=== PATIENT | male | born 1980 | race Caucasian/White ===

== ENCOUNTER 2020-06-06 23:03 | Emergency (ER) | payer BC, SELFPAY ==
--- NOTE | ~2020-06-06 | XR_ITS ---
EXAMINATION: XR chest 2V 06/06/2020 23:42 INDICATION: Midline chest pain PROCEDURE: 2 view chest COMPARISON: No prior studies for comparison. FINDINGS: The lungs are clear. The cardiomediastinal silhouette is within normal limits. There are no pleural effusions. There is no pneumothorax suspected. IMPRESSION: 1: NO ACUTE CARDIOPULMONARY DISEASE. Reviewed, dictated and finalized at location A.
[2020-06-06 23:05] VITALS: BP 153/101; PULSE 75; RESP 20; TEMP 36.8; O2SAT 98
--- NOTE | 2020-06-06 23:06 | ECG_ITS ---
Measurements Intervals [place] Rate: 87 P: 45 DC: 147 QRS: 67 QRSD: 88 T: 36 QT: 358 QTc: 432 Interpretive Statements SINUS RHYTHM BASELINE ARTIFACT- I, II, AVR NORMAL ECG Electronically Signed On 06-07-2020 7:00:12 CDT by Salomon Lynch D.O.
[2020-06-06 23:11] VITALS: PULSE 68; RESP 16; O2SAT 100
[2020-06-06 23:16] LABS: Basophils Absolute Auto 0.1 K/mm3 (0.0-0.1); Basophils Percent Auto 0.5 % (0.2-1.2); Eosinophils Absolute Auto 0.4 K/mm3 (0-0.3); Eosinophils Percent Auto 4.3 % (0-4.4); Hematocrit 48.5 % (42.0-52.0); Hemoglobin 16.6 g/dL (14.0-18.0); Immature Granulocyte Absolute 0.03 K/mm3 (0.00-0.031); Immature Granulocyte Percent A 0.3 % (0-0.5); Lymphocytes Absolute Auto 2.61 K/mm3 (0.9-3.2); Lymphocytes Percent Auto 27.9 % (18.3-44.2); Mean Corpuscular HGB Conc 34.2 g/dl (32-36); Mean Corpuscular Hemoglobin 30.8 pg (26-34); Mean Platelet Volume 10.7 fl (7.4-10.4); Monocytes Absolute Auto 0.9 K/mm3 (0.1-0.6); Monocytes Percent Auto 9.6 % (2.6-8.5); Neutrophils Absolute Auto 5.4 K/mm3 (1.3-6.7); Neutrophils Percent Auto 57.4 % (45.5-73.1); Platelet Count Result 198 k/mm3 (150-375); Red Blood Count 5.39 M/mm3 (4.6-6.20); Red Cell Distribution Width 12.7 % (11.5-14.5); White Blood Count 9.4 K/mm3 (4.5-10.0)
[2020-06-06 23:17] VITALS: O2SAT 98
[2020-06-06] MEDS: ASPIRIN 81 MG CHEWABLE TABLET 324 MG PO (23:19)
[2020-06-06 23:29] LABS: Blood Urea Nitrogen 21 mg/dL (9-20); Carbon Dioxide 29 mmol/L (22-30); Chloride 101 mmol/L (98-107); Estimated CRCL calculation 79 ml/min; Estimated Glomerular Filt Rate > 60; Glucose 86 mg/dL (75-110); Sodium 138 mmol/L (137-145)
[2020-06-06 23:33] LABS: INR 0.9
[2020-06-06 23:34] LABS: Partial Thromboplastin Time 27.2 SECONDS (22.3-36.8)
[2020-06-06 23:41] LABS: Troponin I < 0.012 ng/mL (0.000-0.034)
[2020-06-07 00:12] VITALS: BP 120/76; PULSE 71; RESP 19; O2SAT 96
--- NOTE | 2020-06-07 01:03 | ED.CHESTPAIN ---
HPI - Chest Pain General Chief Complaint: Chest Pain Stated Complaint: cp Time Seen by Provider: 06/07/20 00:41 History of Present Illness HPI narrative: Patient is a 39-year-old male who presents the ER with chest pain that happened earlier this evening. Sharp and lasting 30 to 40 minutes. Intermittent in the center progress chest without radiation. No nausea/vomiting/diaphoresis/dyspnea. Reports this happens a couple times a year he is never had it checked out but encouraged him to come in tonight. No history of coronary disease. No family history of coronary disease. No aggravating or alleviating factors that he is noted. No infectious symptoms. Related Data Allergies Allergy/AdvReac Type Severity Reaction Status Date / Time No Known Allergies Allergy Unverified 07/20/17 19:00 Review of Systems Review of Systems: All systems reviewed & are unremarkable except as noted in HPI and below Constitutional: Constitutional: Denies chills, Denies fever(s) and Denies weakness ENT: Denies nasal congestion and Denies sore throat Cardiovascular: Cardiovascular: Reports chest pain, Denies rapid heart rate and Denies radiating jaw, neck or arm pain Respiratory: Respiratory: Denies cough and Denies dyspnea Gastrointestinal: Gastrointestinal: Denies abdominal pain, Denies diarrhea, Denies nausea and Denies vomiting PMFSH Past Medical History Medical History (Updated 06/07/20 @ 01:07 by Stefan Moran MD) Healthy adult male Surgical History Surgical History (Updated 06/07/20 @ 01:05 by Stefan Moran MD) No pertinent past surgical history Social History Social History (Updated 06/07/20 @ 01:05 by Stefan Moran MD) Smoking status: Never smoker Exam Narrative: Exam Narrative: GENERAL: Well-appearing, well-nourished, and in no acute distress. HEAD: Normocephalic, atraumatic. CHEST: Clear to auscultation. No respiratory distress. No reproducible chest wall tenderness HEART: Regular rate and rhythm. No murmur heard. Normal peripheral pulses. ABDOMEN: Soft, nontender, nondistended. EXTREMITIES: Normal range of motion. No edema. SKIN: Warm, dry, no rash. NEURO: Alert and oriented x3. PSYCH: Normal mood and affect. Course Course Emergency Course: Unremarkable evaluation. Normal EKG without family history or risk factors for coronary disease. History sounds more musculoskeletal. Recommend NSAID therapy. Follow-up with PCP. Vital Signs Vital signs: Vital Signs Temperature 98.3 F 06/06/20 23:05 Pulse Rate 75 06/06/20 23:05 Respiratory Rate 20 06/06/20 23:05 Blood Pressure 153/101 H 06/06/20 23:05 Pulse Oximetry 98 06/06/20 23:05 Temperature 98.3 F 06/06/20 23:05 Pulse Rate 71 06/07/20 00:12 Respiratory Rate 19 06/07/20 00:12 Blood Pressure 120/76 06/07/20 00:12 Pulse Oximetry 96 06/07/20 00:12 MDM - Chest Pain Lab Data Result diagrams: 06/06/20 23:11 06/06/20 23:11 Labs: Lab Results 06/06/20 06/06/20 06/06/20 Range/Units 23:11 23:11 23:11 WBC 9.4 (4.5-10.0) K/mm3 RBC 5.39 (4.6-6.20) M/mm3 Hgb 16.6 (14.0-18.0) g/dL Hct 48.5 (42.0-52.0) % MCV 90.0 (80-100) fl MCH 30.8 (26-34) pg MCHC 34.2 (32-36) g/dl RDW 12.7 (11.5-14.5) % Plt Count 198 (150-375) k/mm3 MPV 10.7 H (7.4-10.4) fl Immature Gran % (Auto) 0.3 (0-0.5) % Neut % (Auto) 57.4 (45.5-73.1) % Lymph % (Auto) 27.9 (18.3-44.2) % [place] % (Auto) 9.6 H (2.6-8.5) % Eos % (Auto) 4.3 (0-4.4) % Baso % (Auto) 0.5 (0.2-1.2) % Lymph # (Auto) 2.61 (0.9-3.2) K/mm3 [place] # (Auto) 0.9 H (0.1-0.6) K/mm3 Eos # (Auto) 0.4 H (0-0.3) K/mm3 Baso # (Auto) 0.1 (0.0-0.1) K/mm3 Abs Immat Gran (auto) 0.03 (0.00-0.031) K/mm3 Absolute Neuts (auto) 5.4 (1.3-6.7) K/mm3 Absolute Nucleated RBC 0.0 (0.0-0.012) K/mm3 Nucleated RBC % 0.0 (0.0-0.2) % PT 12.0 (11.1-14.7)
== END 2020-06-07 01:17 | disposition home or self-care (01) ==
PROVIDERS: Emergency Provider Emergency Medicine
DX: R07.89 Other chest pain (principal)
CPT/HCPCS: 36415; 71046; 80048; 84484; 85025; 85610; 85730; 93005; 99284; A9270

== ENCOUNTER 2021-10-10 16:44 | Emergency (ER) | payer OTHER, BC, SELFPAY ==
--- NOTE | ~2021-10-10 | XR_ITS ---
XR elbow LT min 3V 10/10/2021 17:03 Indication: Left elbow pain after fall Procedure: 4 views left knee Comparison: No prior studies for comparison. Findings: No fracture, subluxation or dislocation. There is displacement of the ventral fat pad, cons istent with joint effusion. Impression: 1: Large joint effusion. No identifiable fracture. Recommend conservative therapy with follow-up x-ra ys in 10-14 days as clinically indicated. Reviewed, dictated and finalized at location A. [employer] SAFETY INSPECTOR Impression: 1: Large joint effusion. No identifiable fracture. Recommend conservative thera py with follow-up x-rays in 10-14 days as clinically indicated.
[2021-10-10 16:44] VITALS: BP 141/97; PULSE 87; RESP 18; O2SAT 98
--- NOTE | 2021-10-10 17:01 | PC.NURSE ---
Pt off floor to radiology.
--- NOTE | 2021-10-10 17:29 | ED.UPPEXIN ---
HPI - Extremity Injury (Upper) General Chief Complaint: Extremity Injury, Upper Stated Complaint: left arm pain Time Seen by Provider: 10/10/21 16:50 Source: patient Mode of arrival: ambulatory Limitations: no limitations History of Present Illness HPI narrative: 41-year-old with no major medical problems here with complaints of left elbow pain since the last couple hours. Patient states that he fell on outstretched hand while playing basketball with the kids at school. He denies any other injuries. complaint: injury to: left Onset (ago): hour(s) (2) Related Data Allergies Allergy/AdvReac Type Severity Reaction Status Date / Time No Known Allergies Allergy Verified 10/10/21 17:06 Review of Systems Review of Systems: All systems reviewed & are unremarkable except as noted in HPI and below Constitutional: Constitutional: Reports no additional constitutional complaints Eyes: Eyes: Reports no additional eye complaints ENT: Reports system reviewed and no additional complaints, except as documented Cardiovascular: Cardiovascular: Reports no additional cardiovascular complaints Respiratory: Respiratory: Reports no additional respiratory complaints Gastrointestinal: Gastrointestinal: Reports no additional gastrointestinal complaints Musculoskeletal: Musculoskeletal: Reports as per HPI Integumentary/Breasts: Skin/Breast: Reports system reviewed and no additional complaints, except as docu Neurologic: Reports system reviewed and no additional complaints, except as documented PMFSH Past Medical History Medical History Healthy adult male Surgical History Surgical History No pertinent past surgical history Social History Social History Smoking status: Never smoker Exam Narrative: GENERAL: Well-appearing, well-nourished, and in no acute distress. HEAD: Normocephalic, atraumatic. EYES: PERRLA and EOMI. NECK: Supple. CHEST: Clear to auscultation. No respiratory distress. HEART: Regular rate and rhythm. No murmur heard. Normal peripheral pulses. EXTREMITIES: Examination of the left elbow shows mild soft tissue swelling. Full range of motion, no deformity. SKIN: Warm, dry, no rash. NEURO: No focal deficits. Alert and oriented x3. PSYCH: Normal mood and affect. Course Course Emergency Course: Inform patient about his x-ray findings. Advised him to wear sling for now. Take pain medication as prescribed. Advised him to follow-up with orthopedic doctor in a week's time for repeat x-ray. Vital Signs Vital signs: Vital Signs Pulse Rate 87 10/10/21 16:44 Respiratory Rate 18 10/10/21 16:44 Blood Pressure 141/97 H 10/10/21 16:44 Pulse Oximetry 98 10/10/21 16:44 Temperature 36.4 C L 10/10/21 18:00 Pulse Rate 75 10/10/21 18:00 Respiratory Rate 16 10/10/21 18:00 Blood Pressure 124/85 10/10/21 18:00 Pulse Oximetry 97 10/10/21 18:00 MDM - Extremity Injury (Upper) Imaging Data Radiologist's impression: ITS Impressions Elbow X-Ray 10/10/21 17:05 Impression: 1: Large joint effusion. No identifiable fracture. Recommend conservative therapy with follow-up x-rays in 10-14 days as clinically indicated. Discharge Plan Discharge Clinical Impression: Contusion of elbow, left Qualifiers: Encounter type: initial encounter Qualified Code(s): S50.02XA - Contusion of left elbow, initial encounter Patient Disposition: Home, Self-Care Condition: Stable Instructions: Antibiotic Form, Contusion in Adults (ED) Additional Instructions: Use sling all the times , take pain medications as prescribed. Prescriptions: New ibuprofen 600 mg tablet 600 mg PO TID PRN (Reason: pain) Qty: 20 RF: 0 Follow-up/Referrals: Atilio Brown MD [Physician] - PHYSICIAN,WILLOW MACHINE OPERATOR [Primary Care Provider] - Time
[2021-10-10 18:00] VITALS: BP 124/85; PULSE 75; RESP 16; TEMP 36.4; O2SAT 97
== END 2021-10-10 18:02 | disposition home or self-care (01) ==
PROVIDERS: Emergency Provider Family Medicine
DX: S50.02XA Contusion of left elbow, initial encounter (principal); W01.0XXA Fall on same level from slipping, tripping and stumbling without subsequent striking against object, initial encounter
CPT/HCPCS: 73080; 99283; A4565

== ENCOUNTER 2023-10-09 21:44 | Emergency (ER) | payer BC, SELFPAY ==
--- NOTE | ~2023-10-09 | US_ITS ---
EXAMINATION: US venous doppler [facility] DATE: 10/09/2023 22:33 INDICATION: Left lower limb pain. TECHNIQUE: Grayscale ultrasound images without and with compression and Doppler ultrasound images of the left lower extremity veins were obtained. COMPARISON: None. FINDINGS: The visualized portions of left common femoral vein, profunda (deep) femoral vein, femoral vein, popl iteal vein, peroneal veins, posterior tibial veins, and greater saphenous vein outflow are patent. IMPRESSION: 1. No deep venous thrombosis. Reviewed, dictated and finalized at location E. [employer]
[2023-10-09 22:02] VITALS: BP 133/86; PULSE 85; RESP 18; TEMP 36.2; O2SAT 99
--- NOTE | 2023-10-09 23:27 | ED.GENADULT ---
[facility] General Adult General Chief complaint: Extremity Problem,Nontraumatic Stated complaint: bluging vein in foot, pain Time Seen by Provider: 10/09/23 22:50 Source: patient Mode of arrival: ambulatory Limitations: no limitations History of Present Illness HPI narrative: This is a 43-year-old male who presents to the ED with chief complaint of left foot redness and pain for the past couple of days. Reports a bulging veins of the dorsum of the left foot. He is concerned for possible blood clot. Denies any history of blood clots. Denies calf pain, swelling. Denies fevers, chills or any injury. Denies any recent wounds or bug bites. Related Data Allergies Allergy/AdvReac Type Severity Reaction Status Date / Time No Known Allergies Allergy Verified 10/09/23 22:53 Review of Systems Review of Systems: All systems as dictated in [facility] Past Medical History Medical History Healthy adult male Surgical History Surgical History No pertinent past surgical history Social History Social History Smoking status: Never smoker Exam Narrative: GENERAL: Well-appearing, well-nourished, and in no acute distress. HEAD: Normocephalic, atraumatic. EYES: PERRLA and EOMI. ENT: Nares clear, no rhinorrhea or epistaxis. Mucous membranes moist. Oropharynx without tonsillar hypertrophy exudate or other lesions. NECK: Supple. No adenopathy or masses. CHEST: No respiratory distress. Clear to auscultation. No wheezes rales or rhonchi HEART: Regular rate and rhythm. No murmur heard. Normal peripheral pulses. ABDOMEN: Soft, nontender, nondistended, normal active bowel sounds. MSK: Normal range of motion. No edema. SKIN: Small area of erythema to the superficial vein on the dorsum of the left foot. No warmth, induration or fluctuance. No drainage. No wounds or lesions. Mildly tender to palpation. Right foot benign NEURO: Alert and oriented x3. No focal deficits. PSYCH: Normal mood and affect. Course Vital Signs Vital signs: Vital Signs Temperature 97.1 F L 10/09/23 22:02 Pulse Rate 85 10/09/23 22:02 Respiratory Rate 18 10/09/23 22:02 Blood Pressure 133/86 10/09/23 22:02 Pulse Oximetry 99 10/09/23 22:02 Oxygen Delivery Room Air 10/09/23 22:02 Temperature 97.1 F L 10/09/23 22:02 Pulse Rate 85 10/09/23 22:02 Respiratory Rate 18 10/09/23 22:02 Blood Pressure 133/86 10/09/23 22:02 Pulse Oximetry 99 10/09/23 22:02 Oxygen Delivery Room Air 10/09/23 22:02 Medical Decision Making MDM Narrative Medical decision making narrative: This is a 43-year-old male who presents to the ED with chief complaint of left foot redness and bulging vein. He is here to rule out blood clot. Vitals are normal. Exam does show some slight erythema and tenderness to the dorsum of the left foot with a prominent superficial vein. No calf tenderness or edema. Ultrasound Doppler is negative for any blood clots of the left lower extremity. Symptoms consistent with superficial phlebitis. Naproxen prescription given. Pt will be discharged in stable condition. Return precautions given and supportive measures discussed. Pt is understanding and agreeable with plan for discharge and follow-up with PCP. Vital Signs Vital Signs: Vital Signs Temperature 97.1 F L 10/09/23 22:02 Pulse Rate 85 10/09/23 22:02 Respiratory Rate 18 10/09/23 22:02 Blood Pressure 133/86 10/09/23 22:02 Pulse Oximetry 99 10/09/23 22:02 Oxygen Delivery Room Air 10/09/23 22:02 Temperature 97.1 F L 10/09/23 22:02 Pulse Rate 85 10/09/23 22:02 Respiratory Rate 18 10/09/23 22:02 Blood Pressure 133/86 10/09/23 22:02 Pulse Oximetry 99 10/09/23 22:02 Oxygen Delivery Room Air 10/09/23 22:02 Discharge Plan Discharge Clinical Impr
[2023-10-09 23:58] VITALS: BP 129/84; PULSE 82; RESP 16; O2SAT 100
== END 2023-10-10 00:03 | disposition home or self-care (01) ==
LOC: ANHED 10-10 00:01
PROVIDERS: Emergency Provider Physician Assistant
DX: I80.02 Phlebitis and thrombophlebitis of superficial vessels of left lower extremity (principal)
CPT/HCPCS: 93971; 99284